=== PATIENT | female | born 1930 | race African-American/Black ===

== ENCOUNTER 2016-10-14 12:35 | Emergency (ER) | payer MEDICARE ==
[~2016-10-14] VITALS: Ht 160 cm; Wt 62.0 kg
[~2016-10-14 12:35] MED LIST: ASPI81TA21 PO; CALTTAB PO; MOTR200T PO; ROSU20 PO; VITA400C28 PO
[2016-10-14] MEDS ORDERED: SODIUM CHLORIDE 0.9% FLUSH 10 ML FLUSH IVF PRN (12:45)
[2016-10-14] MEDS ORDERED: SODIUM CHLORID 0.9% 500 ML INJ 500 ML IV ONE (12:45)
[2016-10-14 12:58] VITALS: BP 183/83; PULSE 69; RESP 18; TEMP 98.1
[2016-10-14 13:02] VITALS: BP 183/83; PULSE 66; RESP 18
[2016-10-14 13:05] VITALS: O2SAT 99
[2016-10-14 13:06] VITALS: BP_SYST 164; BP_SYST 166; BP_SYST 178; BP_SYST 183; BP_DIAS 75; BP_DIAS 77; BP_DIAS 81; BP_DIAS 83; PULSE 66
--- NOTE | 2016-10-14 13:15 | RADRPT ---
EXAM DATE/TIME: 10/14/2016 12:43 [facility] COMPARISON: CHEST SINGLE AP, April 22, 2016, 13:36. INDICATIONS : Syncopal episode today MEDICAL HISTORY : None. SURGICAL HISTORY : None. ENCOUNTER: Initial ACUITY: 1 day PAIN SCORE: 0/10 LOCATION: Bilateral chest FINDINGS: A single view of the chest demonstrates the lungs to be symmetrically aerated without evidence of mas s, infiltrate or effusion. The cardiomediastinal contours are unremarkable. Osseous structures are intact. CONCLUSION: No acute disease. Devan Irwin MD FACR on October 14, 2016 at 13:13 Board Certified Radiologist. This report was verified electronically.
[2016-10-14 13:45] LABS: AUTOMATED NEUTROPHIL # 2.4 TH/MM3 (1.8-7.7); EOSINOPHIL % 0.8 % (0.0-4.0); HEMATOCRIT 38.7 % (35.0-46.0); LYMPH % 31.2 % (9.0-44.0); LYMPHOCYTE # 1.3 TH/MM3 (1.0-4.8); MEAN CELL VOLUME 70.7 FL (80.0-100.0); MEAN CORPUSCULAR HEMOGLOBIN 21.4 PG (27.0-34.0); MEAN CORPUSCULAR HGB CONC 30.2 % (32.0-36.0); PLATELET COUNT 142 TH/MM3 (150-450); RED BLOOD COUNT 5.48 MIL/MM3 (4.00-5.30); RED CELL DISTRIBUTION WIDTH 15.5 % (11.6-17.2); WHITE BLOOD COUNT 4.1 TH/MM3 (4.0-11.0)
[2016-10-14 13:46] LABS: HEMO FLAGS AUTO DIFF
[2016-10-14 13:54] LABS: APTT (PATIENT) 25.7 SEC (24.3-30.1); PROTHROMBIN TIME - PATIENT 11.5 SEC (9.8-11.6)
[2016-10-14 14:01] LABS: ANION GAP 5 MEQ/L (5-15); BICARBONATE 28.7 MEQ/L (21.0-32.0); BLOOD UREA NITROGEN 28 MG/DL (7-18); CHLORIDE 110 MEQ/L (98-107); GLOMERULAR FILTRATION RATE 55 ML/MIN (>89); MAGNESIUM 2.1 MG/DL (1.5-2.5); POTASSIUM 4.1 MEQ/L (3.5-5.1); SODIUM (NA) 144 MEQ/L (136-145)
[2016-10-14 14:05] LABS: CREATINE KINASE 121 U/L (26-192)
[2016-10-14 14:15] VITALS: BP 164/75; PULSE 65
[2016-10-14 14:17] LABS: CKMB 1.9 NG/ML (0.5-3.6)
[2016-10-14 14:30] LABS: SCAN/DIFF AUTO DIFF CONFIRMED
--- NOTE | 2016-10-14 14:42 | PD ---
HPI Chief Complaint: Syncope/Near-Syncope Time Seen by Provider: 12:42 Travel History International Travel<30 days: No Contact w/Intl Traveler<30days: No Traveled to known affect area: No History of Present Illness HPI 86-year-old female came to the emergency room with history of syncopal episode while she was waiting for her food at [employer]. Patient says that she had not eaten for over 16 hours and was very hungry. She had ordered her food and waiting for it to arrive. She was standing when she suddenly felt that she was going to pass out. Bystanders told the EMS that she never really passed out. They gently laid her down on the floor. When EMS arrived she was awake and complaining of some generalized weakness. Her blood sugar was 121. She arrived with stable vital sign and GCS of 15. She was awake and answering questions appropriately. Told me that she has low back pain but patient has history of low back pain. She said her low back pain was no different than her usual. No history of nausea vomiting. Patient said she had a similar episode in April of last year. He was in the emergency room at that time and was worked up and discharged home. She followed up with her primary care after that. [facility] Past Medical History Narrative Medical List of her past medical, surgical, social and family history was reviewed from the nursing note. Arthritis: Yes Blood Disorders: No Anxiety: No Depression: Yes (IN 1940s) Cancer: No Cardiovascular Problems: Yes High Cholesterol: Yes Chemotherapy: No Endocrine: No Gastrointestinal Disorders: Yes Genitourinary: Yes (INCONTINENT A TIMES/ URGENCY) Hiatal Hernia: Yes Immune Disorder: No Implanted Vascular Access Dvce: No Musculoskeletal: Yes (VERSITIS RIGHT KNEE) Neurologic: Yes Psychiatric: Yes Reproductive: No Respiratory: No Radiation Therapy: No Past Surgical History Abdominal Surgery: Yes (CHOLECYSTECTOMY 2000) AICD: No Cholecystectomy: Yes Gynecologic Surgery: Yes Joint Replacement: No Pacemaker: No Other Surgery: Yes Social History Alcohol Use: Yes (TWICE A MONTH WINE) Tobacco Use: No Substance Use: No Allergies-Medications (Allergen,Severity, Reaction): Coded Allergies: Hydrocodone (Verified Allergy, Severe, HEADACHE, 04/22/16) Phenergan (Verified Allergy, Severe, SYNCOPE AND EMESIS, 04/22/16) Symmetrel (Verified Allergy, Severe, DIZZINESS AND HALLUCINATIONS, 04/22/16 ) Codeine (Verified Adverse Reaction, Severe, NAUSEA, 04/22/16) Tetracyclines (Verified Adverse Reaction, Severe, NAUSEA, 04/22/16) Comments List of her allergies reviewed from the nursing note. Reported Meds & Prescriptions Reported Meds & Active Scripts Active Reported Ibuprofen Ib (Ibuprofen) 200 Mg Tab 200 Mg PO DIRECTED PRN Caltrate 600+D (Calcium Carbonate/Cholecalciferol) + Tab 1 Tab PO DAILY Aspir-Low (Aspirin) 81 Mg Tab 81 Mg PO HS Vitamin D 400 Unit Tab 400 Units PO BID Crestor (Rosuvastatin Calcium) 20 Mg Tab 20 Mg PO HS Narrative Medication List of her home medications reviewed from the nursing note. Review of Systems Except as stated in HPI: all other systems reviewed are Neg Physical Exam Narrative GENERAL: Awake, alert, no obvious distress SKIN: Focused skin assessment warm/dry. HEAD: Atraumatic. Normocephalic. EYES: Pupils equal and round. No scleral icterus. No injection or drainage. ENT: No nasal bleeding or discharge. Dry mucous membrane NECK: Trachea midline. No JVD. CARDIOVASCULAR: Regular rate and rhythm. No murmur appreciated. RESPIRATORY: No accessory muscle use. Clear to auscultation. Breath sounds equal bilaterally. GASTROINTESTINAL: Abdomen soft, non-tender, nondistended. Hepatic and splenic margins not palpable. MUSCULOSKELETAL: No obvious deformities. No clubbing. No cyanosis. No edema. NEUROLOGICAL: Awake and alert. No obvious cranial nerve deficits. Motor grossly within normal limits. Normal speech. PSYCHIATRIC: Appropriate mood and affect; insight and judgment normal. Data Data Last Documented VS Vital Signs Date Time Temp Pulse Resp B/P Pulse Ox O2 Delivery O2 Flow Rate FiO2 10/14/16 15:37 100 10/14/16 14:15 65 164/75 10/14/16 13:05 Room Air 10/14/16 13:02 18 10/14/16 12:58 98.1 Orders Electrocardiogram (10/14/16 12:42) Basic Metabolic Panel (Bmp) (10/14/16 12:42) Ckmb (Isoenzyme) Profile (10/14/16 12:42) Complete Blood Count With Diff (10/14/16 12:42) Magnesium (Mg) (10/14/16 12:42) Prothrombin Time / Inr (Pt) (10/14/16 12:42) Act Partial Throm Time (Ptt) (10/14/16 12:42) Troponin I (10/14/16 12:42) Chest, Single Ap (10/14/16 12:42) Ecg Monitoring (10/14/16 12:42) Bilateral Bp Monitoring (10/14/16 12:42) Iv Access Insert/Monitor (10/14/16 12:42) Oximetry (10/14/16 12:42) Oxygen Administration (10/14/16 12:42) Sodium Chloride 0.9% Flush (Ns Flush) (10/14/16 12:45) Sodium Chlorid 0.9% 500 Ml Inj (Ns 500 M (10/14/16 12:45) Diet Heart Healthy (10/14/16 Lunch) Orthostatic Vital Signs (10/14/16 12:43) CKMB (10/14/16 13:20) CKMB% (10/14/16 13:20) Labs Laboratory Tests Test 10/14/16 13:20 White Blood Count 4.1 TH/MM3 Red Blood Count 5.48 MIL/MM3 Hemoglobin 11.7 GM/DL Hematocrit 38.7 % Mean Corpuscular Volume 70.7 FL Mean Corpuscular Hemoglobin 21.4 PG Mean Corpuscular Hemoglobin 30.2 % Concent Red Cell Distribution Width 15.5 % Platelet Count 142 TH/MM3 Mean Platelet Volume 9.9 FL Neutrophils (%) (Auto) 58.0 % Lymphocytes (%) (Auto) 31.2 % Monocytes (%) (Auto) 9.0 % Eosinophils (%) (Auto) 0.8 % Basophils (%) (Auto) 1.0 % Neutrophils # (Auto) 2.4 TH/MM3 Lymphocytes # (Auto) 1.3 TH/MM3 Monocytes # (Auto) 0.4 TH/MM3 Eosinophils # (Auto) 0.0 TH/MM3 Basophils # (Auto) 0.0 TH/MM3 CBC Comment AUTO DIFF Differential Comment AUTO DIFF CONFIRMED Prothrombin Time 11.5 SEC Prothromb Time International 1.0 RATIO Ratio Activated Partial 25.7 SEC Thromboplast Time Sodium Level 144 MEQ/L Potassium Level 4.1 MEQ/L Chloride Level 110 MEQ/L Carbon Dioxide Level 28.7 MEQ/L Anion Gap 5 MEQ/L Blood Urea Nitrogen 28 MG/DL Creatinine 1.13 MG/DL Estimat Glomerular Filtration 55 ML/MIN Rate Random Glucose 101 MG/DL Calcium Level 8.9 MG/DL Magnesium Level 2.1 MG/DL Total Creatine Kinase 121 U/L Creatine Kinase MB 1.9 NG/ML Troponin I LESS THAN 0.02 NG/ML MDM Medical Decision Making Medical Screen Exam Complete: Yes Emergency Medical Condition: Yes Medical Record Reviewed: Yes Interpretation(s) Twelve-lead EKG was reviewed by me. Normal sinus rhythm, left axis deviation, nonspecific ST-T wave changes. Heart rate of 66 bpm. Differential Diagnosis Dehydration, orthostatic hypotension, electrolyte abnormality, arrhythmia Narrative Course 2:42 PM blood test results of back and within normal limit. CT scan of her head is within normal limit. Procedures EKG Prior to Arrival: No Diagnosis Primary Impression: Pre-syncope Referrals: Primary Care Physician 3 days Additional Instructions: Please return to the ER if the condition worsens or any other concerns. Otherwise follow-up with your primary care. Drink lots of fluid. Med/Other Pt SpecificInfo: No Change to Meds Disposition: 01 DISCHARGE HOME Condition: Stable Celina Lee MD Oct 14, 2016 14:42
--- NOTE | 2016-10-15 00:01 | EKG ---
Date Performed: 10/14/2016 Time Performed: 13:40:29 PTAGE: 86 years EKG: Sinus rhythm NONSPECIFIC T-WAVE ABNORMALITY BORDERLINE ECG PREVIOUS TRACING : 04/22/2016 14.03 DOCTOR: Melinda Butler Interpretating Date/Time 10/15/2016 00:00:41
== END 2016-10-14 16:27 | disposition home or self-care (01) ==
LOC: NEPA 12:35
DX: R55 Syncope and collapse (principal); R53.1 Weakness; R94.31 Abnormal electrocardiogram [ECG] [EKG]; E78.00 Pure hypercholesterolemia, unspecified; Z87.39 Personal history of other diseases of the musculoskeletal system and connective tissue; Z86.79 Personal history of other diseases of the circulatory system; Z87.19 Personal history of other diseases of the digestive system; Z87.448 Personal history of other diseases of urinary system; Z86.69 Personal history of other diseases of the nervous system and sense organs; Z86.59 Personal history of other mental and behavioral disorders
CPT/HCPCS: 71010; 80048; 82550; 82552; 83735; 84484; 85025; 85610; 85730; 93005; 96360; 99284; J7040

== ENCOUNTER 2016-10-24 22:15 | Emergency (ER) | payer MEDICARE ==
[~2016-10-24] VITALS: Ht 160 cm; Wt 60.0 kg
[2016-10-24 23:14] VITALS: BP 137/74; PULSE 68; RESP 20; TEMP 98.1; O2SAT 99
[2016-10-24 23:21] VITALS: O2SAT 98
[2016-10-24] MEDS ORDERED: SODIUM CHLORIDE 0.9% FLUSH 10 ML FLUSH IVF PRN (23:30)
--- NOTE | 2016-10-24 23:50 | RADRPT ---
EXAM DATE/TIME: 10/24/2016 23:16 [facility] COMPARISON: No previous studies available for comparison. INDICATIONS : Syncope. MEDICAL HISTORY : Cardiovascular disease. Arthritis. Hernia, hiatal. SURGICAL HISTORY : Hysterectomy. Cholecystectomy. ENCOUNTER: Initial ACUITY: 1 day PAIN SCORE: 0/10 LOCATION: Bilateral chest FINDINGS: A single view of the chest demonstrates the lungs to be symmetrically aerated without evidence of mas s, infiltrate or effusion. The cardiomediastinal contours are unremarkable. Osseous structures are intact. CONCLUSION: No acute disease. Felix Slaughter MD on October 24, 2016 at 23:48 Board Certified Radiologist. This report was verified electronically.
--- NOTE | 2016-10-25 00:01 | RADRPT ---
EXAM DATE/TIME: 10/24/2016 23:54 [facility] COMPARISON: CT BRAIN W/O CONTRAST, April 22, 2016, 13:43. INDICATIONS : Syncopal episode. RADIATION DOSE: 31.34 CTDIvol (mGy) MEDICAL HISTORY : None SURGICAL HISTORY : None. ENCOUNTER: Initial ACUITY: 1 day PAIN SCALE: 4/10 LOCATION: cranial TECHNIQUE: Multiple contiguous axial images were obtained of the head. Using automated exposure control and adj ustment of the mA and/or kV according to patient size, radiation dose was kept as low as reasonably a chievable to obtain optimal diagnostic quality images. FINDINGS: CEREBRUM: Area of low attenuation throughout the white matter. The ventricles are normal for age. No evidence of midline shift, mass lesion, hemorrhage or acute infarction. No extra-axial fluid collections are seen. POSTERIOR FOSSA: The cerebellum and brainstem are intact. The 4th ventricle is midline. The cerebellopontine angle i s unremarkable. EXTRACRANIAL: The visualized portion of the orbits is intact. SKULL: The calvaria is intact. No evidence of skull fracture. CONCLUSION: Nonspecific white matter changes. No change from previous study. Felix Slaughter MD on October 25, 2016 at 0:00 Board Certified Radiologist. This report was verified electronically.
[2016-10-25 00:02] LABS: BLOOD, URINE NEG (NEG); COMMENT (UR) CULT NOT INDICATED; CULTURE IF INDICATED CULT NOT INDICATED; GLUCOSE,URINE NEG (NEG); KETONE, URINE NEG (NEG); MUCUS URINE FEW /lpf (OCC); NITRITE,URINE NEG (NEG); SQUAMOUS EPITHELIAL CELL URINE 1 /hpf (0-5); URINE COLOR LIGHT-YELLOW (YELLW/STRAW)
[2016-10-25 01:09] LABS: ALT (GPT) 20 U/L (10-53); ANION GAP 9 MEQ/L (5-15); AST (GOT) 17 U/L (15-37); BICARBONATE 26.2 MEQ/L (21.0-32.0); BLOOD UREA NITROGEN 21 MG/DL (7-18); CHLORIDE 104 MEQ/L (98-107); GLOMERULAR FILTRATION RATE 59 ML/MIN (>89); MAGNESIUM 2.1 MG/DL (1.5-2.5); POTASSIUM 4.2 MEQ/L (3.5-5.1); SODIUM (NA) 139 MEQ/L (136-145)
[2016-10-25 01:12] LABS: ALKALINE PHOSPHATASE 68 U/L (45-117); CREATINE KINASE 104 U/L (26-192); TOTAL BILIRUBIN ADULT 0.3 MG/DL (0.2-1.0)
--- NOTE | 2016-10-25 01:17 | PD ---
HPI Chief Complaint: Syncope/Near-Syncope Time Seen by Provider: 23:54 Travel History International Travel<30 days: No Contact w/Intl Traveler<30days: No Traveled to known affect area: No History of Present Illness HPI Patient is an 86-year-old female who presents to emergency room with her daughter for evaluation of near syncopal episode. She reports that she was at [employer] today, reports that she was waiting for her friends and started having a heavy sensation. Patient reports that she told this to one of the [employer] members and she was brought to the bench chair, reports that she felt as if she was going to "pass out." Patient reports that she had a syncopal episode 2 weeks ago and was admitted to the hospital, patient unsure why she keeps having these syncopal episodes. Patient reports that if her friends can help her to the bench, she would've passed out. Patient reports that she has no headache or dizziness at this time. Patient with no chest pain or shortness of breath. PFSH Past Medical History Arthritis: Yes Blood Disorders: No Anxiety: No Depression: Yes (IN 1940s) Cancer: No Cardiovascular Problems: Yes High Cholesterol: Yes Chemotherapy: No Diminished Hearing: Yes Endocrine: No Gastrointestinal Disorders: Yes Genitourinary: Yes (INCONTINENT A TIMES/ URGENCY) Hiatal Hernia: Yes Immune Disorder: No Implanted Vascular Access Dvce: No Musculoskeletal: Yes (VERSITIS RIGHT KNEE) Neurologic: Yes Psychiatric: Yes Reproductive: No Respiratory: No Radiation Therapy: No Tetanus Vaccination: > 5 Years Influenza Vaccination: No Past Surgical History Abdominal Surgery: Yes (CHOLECYSTECTOMY 2000) AICD: No Cholecystectomy: Yes Gynecologic Surgery: Yes Joint Replacement: No Pacemaker: No Other Surgery: Yes Social History Alcohol Use: No Tobacco Use: No Substance Use: No Allergies-Medications (Allergen,Severity, Reaction): Coded Allergies: Hydrocodone (Verified Allergy, Severe, HEADACHE, 10/24/16) Phenergan (Verified Allergy, Severe, SYNCOPE AND EMESIS, 10/24/16) Symmetrel (Verified Allergy, Severe, DIZZINESS AND HALLUCINATIONS, 10/24/16 ) Codeine (Verified Adverse Reaction, Severe, NAUSEA, 10/24/16) Tetracyclines (Verified Adverse Reaction, Severe, NAUSEA, 10/24/16) Reported Meds & Prescriptions Reported Meds & Active Scripts Active Reported Ibuprofen Ib (Ibuprofen) 200 Mg Tab 200 Mg PO DIRECTED PRN Caltrate 600+D (Calcium Carbonate/Cholecalciferol) + Tab 1 Tab PO DAILY Aspir-Low (Aspirin) 81 Mg Tab 81 Mg PO HS Vitamin D (Cholecalciferol) 400 Unit Tab 400 Units PO BID Crestor (Rosuvastatin Calcium) 20 Mg Tab 20 Mg PO HS Review of Systems General / Constitutional: No: Fever Eyes: No: Visual changes HENT: No: Headaches Cardiovascular: No: Chest Pain or Discomfort Respiratory: No: Shortness of Breath Gastrointestinal: No: Abdominal Pain Genitourinary: No: Dysuria Musculoskeletal: No: Pain Skin: No Rash Neurologic: Positive: Weakness, Syncope Psychiatric: No: Depression Endocrine: No: Polydipsia Hematologic/Lymphatic: No: Easy Bruising Physical Exam Narrative GENERAL: No acute distress, nontoxic SKIN: Focused skin assessment warm/dry. HEAD: Atraumatic. Normocephalic. EYES: Pupils equal and round. No scleral icterus. No injection or drainage. ENT: No nasal bleeding or discharge. Mucous membranes pink and moist. NECK: Trachea midline. No JVD. CARDIOVASCULAR: Regular rate and rhythm. No murmur appreciated. RESPIRATORY: No accessory muscle use. Clear to auscultation. Breath sounds equal bilaterally. GASTROINTESTINAL: Abdomen soft, non-tender, nondistended. Hepatic and splenic margins not palpable. MUSCULOSKELETAL: No obvious deformities. No clubbing. No cyanosis. No edema. NEUROLOGICAL: Awake and alert. No obvious cranial nerve deficits. Motor grossly within normal limits. Normal speech. CN2- 12 grossly intact with no obvious neuro deficits PSYCHIATRIC: Appropriate mood and affect; insight and judgment normal. Data Data Last Documented VS Vital Signs Date Time Temp Pulse Resp B/P Pulse Ox O2 Delivery O2 Flow Rate FiO2 10/24/16 23:21 98 10/24/16 23:14 98.1 68 20 137/74 Orders Complete Blood Count With Diff (10/24/16 23:17) Comprehensive Metabolic Panel (10/24/16 23:17) Magnesium (Mg) (10/24/16 23:17) B-Type Natriuretic Peptide (10/24/16 23:17) Ckmb (Isoenzyme) Profile (10/24/16 23:17) Troponin I (10/24/16 23:17) Act Partial Throm Time (Ptt) (10/24/16 23:17) Prothrombin Time / Inr (Pt) (10/24/16 23:17) Urinalysis - C+S If Indicated (10/24/16 23:17) Chest, Single Ap (10/24/16 23:17) Ct Brain W/O Iv Contrast(Rout) (10/24/16 23:17) Blood Glucose (10/24/16 23:17) Ecg Monitoring (10/24/16 23:17) Iv Access Insert/Monitor (10/24/16 23:17) Oximetry (10/24/16 23:17) Sodium Chloride 0.9% Flush (Ns Flush) (10/24/16 23:30) CKMB (10/25/16 00:10) CKMB% (10/25/16 00:10) Sodium Chlorid 0.9% 500 Ml Inj (Ns 500 M (10/25/16 02:00) Labs Laboratory Tests Test 10/24/16 10/25/16 10/25/16 23:45 00:10 02:00 Urine Color LIGHT-YELLOW Urine Turbidity CLEAR Urine pH 7.0 Urine Specific [place] 1.010 Urine Protein NEG mg/dL Urine Glucose (UA) NEG mg/dL Urine Ketones NEG mg/dL Urine Occult Blood NEG Urine Nitrite NEG Urine Bilirubin NEG Urine Urobilinogen LESS THAN 2.0 MG/DL Urine Leukocyte Esterase NEG Urine RBC 1 /hpf Urine WBC 2 /hpf Urine Squamous Epithelial 1 /hpf Cells Urine Mucus FEW /lpf Microscopic Urinalysis Comment CULT NOT INDICATED Sodium Level 139 MEQ/L Potassium Level 4.2 MEQ/L Chloride Level 104 MEQ/L Carbon Dioxide Level 26.2 MEQ/L Anion Gap 9 MEQ/L Blood Urea Nitrogen 21 MG/DL Creatinine 1.06 MG/DL Estimat Glomerular Filtration 59 ML/MIN Rate Random Glucose 114 MG/DL Calcium Level 9.5 MG/DL Magnesium Level 2.1 MG/DL Total Bilirubin 0.3 MG/DL Aspartate Amino Transf 17 U/L (AST/SGOT) Alanine Aminotransferase 20 U/L (ALT/SGPT) Alkaline Phosphatase 68 U/L Total Creatine Kinase 104 U/L Creatine Kinase MB 1.4 NG/ML Troponin I LESS THAN 0.02 NG/ML B-Type Natriuretic Peptide 32 PG/ML Total Protein 7.4 GM/DL Albumin 3.7 GM/DL White Blood Count 7.6 TH/MM3 Red Blood Count 5.51 MIL/MM3 Hemoglobin 12.2 GM/DL Hematocrit 38.5 % Mean Corpuscular Volume 69.8 FL Mean Corpuscular Hemoglobin 22.2 PG Mean Corpuscular Hemoglobin 31.8 % Concent Red Cell Distribution Width 15.3 % Platelet Count 149 TH/MM3 Mean Platelet Volume 9.9 FL Neutrophils (%) (Auto) 80.3 % Lymphocytes (%) (Auto) 13.7 % Monocytes (%) (Auto) 5.7 % Eosinophils (%) (Auto) 0.1 % Basophils (%) (Auto) 0.2 % Neutrophils # (Auto) 6.1 TH/MM3 Lymphocytes # (Auto) 1.0 TH/MM3 Monocytes # (Auto) 0.4 TH/MM3 Eosinophils # (Auto) 0.0 TH/MM3 Basophils # (Auto) 0.0 TH/MM3 CBC Comment AUTO DIFF Differential Comment AUTO DIFF CONFIRMED Platelet Estimate NORMAL Platelet Morphology Comment ENLARGED Ovalocytes 1+ Prothrombin Time 11.2 SEC Prothromb Time International 1.0 RATIO Ratio Activated Partial 24.8 SEC Thromboplast Time MDM Medical Decision Making Medical Screen Exam Complete: Yes Emergency Medical Condition: Yes Interpretation(s) EKG at 2237: NSR at 66bpm, qt/qtc: 331/345, nonspecific t wave changes Vital Signs Date Time Temp Pulse Resp B/P Pulse Ox O2 Delivery O2 Flow Rate FiO2 10/24/16 23:21 98 10/24/16 23:14 98.1 68 20 137/74 99 10/24/16 23:14 68 20 98 Laboratory Tests Test 10/24/16 10/25/16 23:45 00:10 Urine Color LIGHT-YELLOW (YELLW/STRAW) Urine Turbidity CLEAR (CLEAR) Urine pH 7.0 (5.0-8.5) Urine Specific [place] 1.010 (1.002-1.035) Urine Protein NEG mg/dL (NEG-TRACE) Urine Glucose (UA) NEG mg/dL (NEG) Urine Ketones NEG mg/dL (NEG) Urine Occult Blood NEG (NEG) Urine Nitrite NEG (NEG) Urine Bilirubin NEG (NEG) Urine Urobilinogen LESS THAN 2.0 MG/DL (LESS THAN 2.0) Urine Leukocyte Esterase NEG (NEG) Urine RBC 1 /hpf (0-3) Urine WBC 2 /hpf (0-5) Urine Squamous Epithelial 1 /hpf (0-5) Cells Urine Mucus FEW /lpf (OCC) Microscopic Urinalysis Comment CULT NOT INDICATED Sodium Level 139 MEQ/L (136-145) Potassium Level 4.2 MEQ/L (3.5-5.1) Chloride Level 104 MEQ/L (98-107) Carbon Dioxide Level 26.2 MEQ/L (21.0-32.0) Anion Gap 9 MEQ/L (5-15) Blood Urea Nitrogen 21 MG/DL (7-18) Creatinine 1.06 MG/DL (0.50-1.00) Estimat Glomerular Filtration 59 ML/MIN (>89) Rate Random Glucose 114 MG/DL (74-106) Calcium Level 9.5 MG/DL (8.5-10.1) Magnesium Level 2.1 MG/DL (1.5-2.5) Total Bilirubin 0.3 MG/DL (0.2-1.0) Aspartate Amino Transf 17 U/L (15-37) (AST/SGOT) Alanine Aminotransferase 20 U/L (10-53) (ALT/SGPT) Alkaline Phosphatase 68 U/L (45-117) Total Creatine Kinase 104 U/L (26-192) Troponin I LESS THAN 0.02 NG/ML (0.02-0.05) Total Protein 7.4 GM/DL (6.4-8.2) Albumin 3.7 GM/DL (3.4-5.0) Last Impressions Head CT 10/24/162316 Signed Impressions: Service Date/Time: Monday, October 24, 2016 23:54 - CONCLUSION: Nonspecific white matter changes. No change from previous study. Felix Slaughter MD Chest X-Ray 10/24/162316 Signed Impressions: Service Date/Time: Monday, October 24, 2016 23:16 - CONCLUSION: No acute disease. Felix Slaughter MD Differential Diagnosis Arrhythmia, intracranial hemorrhage, electrolyte, ACS, UTI Narrative Course Patient is an 78-year-old female who presents emergency room with her family members after near syncopal episode. Patient reports that she was at [employer] and felt as if she was going to "pass out." Patient was placed on a aesthetics instructor upon arrival to the emergency room. NIH scale 0 CT of her head as well as lab work ordered. Vital Signs Date Time Temp Pulse Resp B/P Pulse Ox O2 Delivery O2 Flow Rate FiO2 10/24/16 23:21 98 10/24/16 23:14 98.1 68 20 137/74 99 10/24/16 23:14 68 20 98 Laboratory Tests Test 10/24/16 10/25/16 10/25/16 23:45 00:10 02:00 Urine Color LIGHT-YELLOW (YELLW/STRAW) Urine Turbidity CLEAR (CLEAR) Urine pH 7.0 (5.0-8.5) Urine Specific [place] 1.010 (1.002-1.035) Urine Protein NEG mg/dL (NEG-TRACE) Urine Glucose (UA) NEG mg/dL (NEG) Urine Ketones NEG mg/dL (NEG) Urine Occult Blood NEG (NEG) Urine Nitrite NEG (NEG) Urine Bilirubin NEG (NEG) Urine Urobilinogen LESS THAN 2.0 MG/DL (LESS THAN 2.0) Urine Leukocyte Esterase NEG (NEG) Urine RBC 1 /hpf (0-3) Urine WBC 2 /hpf (0-5) Urine Squamous Epithelial 1 /hpf (0-5) Cells Urine Mucus FEW /lpf (OCC) Microscopic Urinalysis Comment CULT NOT INDICATED Sodium Level 139 MEQ/L (136-145) Potassium Level 4.2 MEQ/L (3.5-5.1) Chloride Level 104 MEQ/L (98-107) Carbon Dioxide Level 26.2 MEQ/L (21.0-32.0) Anion Gap 9 MEQ/L (5-15) Blood Urea Nitrogen 21 MG/DL (7-18) Creatinine 1.06 MG/DL (0.50-1.00) Estimat Glomerular Filtration 59 ML/MIN (>89) Rate Random Glucose 114 MG/DL (74-106) Calcium Level 9.5 MG/DL (8.5-10.1) Magnesium Level 2.1 MG/DL (1.5-2.5) Total Bilirubin 0.3 MG/DL (0.2-1.0) Aspartate Amino Transf 17 U/L (15-37) (AST/SGOT) Alanine Aminotransferase 20 U/L (10-53) (ALT/SGPT) Alkaline Phosphatase 68 U/L (45-117) Total Creatine Kinase 104 U/L (26-192) Creatine Kinase MB 1.4 NG/ML (0.5-3.6) Troponin I LESS THAN 0.02 NG/ML (0.02-0.05) B-Type Natriuretic Peptide 32 PG/ML (0-100) Total Protein 7.4 GM/DL (6.4-8.2) Albumin 3.7 GM/DL (3.4-5.0) White Blood Count 7.6 TH/MM3 (4.0-11.0) Red Blood Count 5.51 MIL/MM3 (4.00-5.30) Hemoglobin 12.2 GM/DL (11.6-15.3) Hematocrit 38.5 % (35.0-46.0) Mean Corpuscular Volume 69.8 FL (80.0-100.0) Mean Corpuscular Hemoglobin 22.2 PG (27.0-34.0) Mean Corpuscular Hemoglobin 31.8 % Concent (32.0-36.0) Red Cell Distribution Width 15.3 % (11.6-17.2) Platelet Count 149 TH/MM3 (150-450) Mean Platelet Volume 9.9 FL (7.0-11.0) Neutrophils (%) (Auto) 80.3 % (16.0-70.0) Lymphocytes (%) (Auto) 13.7 % (9.0-44.0) Monocytes (%) (Auto) 5.7 % (0.0-8.0) Eosinophils (%) (Auto) 0.1 % (0.0-4.0) Basophils (%) (Auto) 0.2 % (0.0-2.0) Neutrophils # (Auto) 6.1 TH/MM3 (1.8-7.7) Lymphocytes # (Auto) 1.0 TH/MM3 (1.0-4.8) Monocytes # (Auto) 0.4 TH/MM3 (0-0.9) Eosinophils # (Auto) 0.0 TH/MM3 (0-0.4) Basophils # (Auto) 0.0 TH/MM3 (0-0.2) CBC Comment AUTO DIFF Differential Comment AUTO DIFF CONFIRMED Platelet Estimate NORMAL (NORMAL) Platelet Morphology Comment ENLARGED (NORMAL) Ovalocytes 1+ (NORMAL) Prothrombin Time 11.2 SEC (9.8-11.6) Prothromb Time International 1.0 RATIO Ratio Activated Partial 24.8 SEC Thromboplast Time (24.3-30.1) [place] [address] Signed Impressions: Service Date/Time: Monday, October 24, 2016 23:54 - CONCLUSION: Nonspecific white matter changes. No change from previous study. Felix Slaughter MD Chest X-Ray 10/24/162316 Signed Impressions: Service Date/Time: Monday, October 24, 2016 23:16 - CONCLUSION: No acute disease. Felix Slaughter MD All labs and all studies reviewed patient in detail. Patient reports that she is feeling much better after the IV fluids. Discussed signs and symptoms of when to return to the emergency room. Patient will return to emergency room as needed. Patient will follow-up with a primary care doctor. Diagnosis Primary Impression: Pre-syncope Additional Impression: Dehydration Patient Instructions: General Instructions Additional Instructions: Please follow up with your primary care doctor Return to the emergency room if symptoms return Return to the emergency room as needed Please drink plenty of fluids Return to the ER immediately if you develop severe chest pain, shortness of breath, sweating, lightheadedness, dizziness or difficulty breathing Disposition: 01 DISCHARGE HOME Condition: Stable Farida Ritter DO Oct 25, 2016 01:17
[2016-10-25 01:25] LABS: CKMB 1.4 NG/ML (0.5-3.6)
[2016-10-25] MEDS ORDERED: SODIUM CHLORID 0.9% 500 ML INJ 500 ML IV ONE (02:00)
[2016-10-25 02:34] LABS: AUTOMATED NEUTROPHIL # 6.1 TH/MM3 (1.8-7.7); BASOPHIL % 0.2 % (0.0-2.0); EOSINOPHIL % 0.1 % (0.0-4.0); HEMATOCRIT 38.5 % (35.0-46.0); LYMPH % 13.7 % (9.0-44.0); MEAN CELL VOLUME 69.8 FL (80.0-100.0); MEAN CORPUSCULAR HEMOGLOBIN 22.2 PG (27.0-34.0); MEAN CORPUSCULAR HGB CONC 31.8 % (32.0-36.0); MONO % 5.7 % (0.0-8.0); NEUT % 80.3 % (16.0-70.0); PLATELET COUNT 149 TH/MM3 (150-450); RED BLOOD COUNT 5.51 MIL/MM3 (4.00-5.30); RED CELL DISTRIBUTION WIDTH 15.3 % (11.6-17.2); WHITE BLOOD COUNT 7.6 TH/MM3 (4.0-11.0)
[2016-10-25 02:36] LABS: APTT (PATIENT) 24.8 SEC (24.3-30.1); PROTHROMBIN TIME - PATIENT 11.2 SEC (9.8-11.6)
[2016-10-25 02:47] LABS: HEMO FLAGS AUTO DIFF
[2016-10-25 03:21] LABS: OVALOCYTES 1+ (NORMAL); PLATELET ESTIMATE SMEAR NORMAL (NORMAL); PLATELET MORPHOLOGY ENLARGED (NORMAL); SCAN/DIFF AUTO DIFF CONFIRMED
--- NOTE | 2016-10-25 11:55 | EKG ---
Date Performed: 10/24/2016 Time Performed: 22:37:50 PTAGE: 86 years EKG: Sinus rhythm NONSPECIFIC T-WAVE ABNORMALITY BORDERLINE ECG NO PREVIOUS TRACING DOCTOR: Dino Lozada Interpretating Date/Time 10/25/2016 11:51:11
== END 2016-10-25 04:21 | disposition home or self-care (01) ==
LOC: NEPC 22:15
DX: R55 Syncope and collapse (principal); E86.0 Dehydration; R94.31 Abnormal electrocardiogram [ECG] [EKG]
CPT/HCPCS: 70450; 71010; 80053; 81001; 82550; 82552; 83735; 83880; 84484; 85025; 85610; 85730; 93005; 96360; 96361; 99284; J7040

== ENCOUNTER 2017-07-01 08:12 | Emergency (ER) | payer MEDICARE ==
[~2017-07-01] VITALS: Ht 160 cm; Wt 56.5 kg
[2017-07-01 08:13] VITALS: BP 191/86; PULSE 71; RESP 16; TEMP 98; O2SAT 98
[2017-07-01] MEDS ORDERED: IBUPROFEN 400 MG TAB PO ONE (08:45)
--- NOTE | 2017-07-01 08:45 | PD ---
HPI Chief Complaint: Pain: Acute or Chronic Time Seen by Provider: 08:40 Travel History International Travel<30 days: No Contact w/Intl Traveler<30days: No Traveled to known affect area: No History of Present Illness HPI 86-year-old right-hand dominant female presents to the ED for evaluation of right hand and wrist pain. Onset last night. Rated 8/10, worsened by touch and certain motions. The patient states that she had blood drawn out of the right hand last week. He endorses weakness and limitations to range of motion secondary to pain. She states the pain radiates into the wrist and forearm. She denies numbness, tingling, known trauma. She treated at home by using a compressive wrap. PFSH Past Medical History Arthritis: Yes Blood Disorders: No Anxiety: No Depression: Yes (IN 1940s) Cancer: No Cardiovascular Problems: Yes High Cholesterol: Yes Chemotherapy: No Diminished Hearing: Yes Endocrine: No Gastrointestinal Disorders: Yes Genitourinary: Yes (INCONTINENT A TIMES/ URGENCY) Hiatal Hernia: Yes Immune Disorder: No Implanted Vascular Access Dvce: No Musculoskeletal: Yes (VERSITIS RIGHT KNEE) Neurologic: Yes Psychiatric: Yes Reproductive: No Respiratory: No Radiation Therapy: No Past Surgical History Abdominal Surgery: Yes (CHOLECYSTECTOMY 2000) AICD: No Cholecystectomy: Yes Gynecologic Surgery: Yes Hysterectomy: Yes Joint Replacement: No Pacemaker: No Other Surgery: Yes Social History Alcohol Use: No Tobacco Use: No Substance Use: No Allergies-Medications (Allergen,Severity, Reaction): Coded Allergies: amantadine (Unverified Allergy, Severe, DIZZINESS AND HALLUCINATIONS, 02/27) hydrocodone (Unverified Allergy, Severe, HEADACHE, 02/27/17) promethazine (Unverified Allergy, Severe, SYNCOPE AND EMESIS, 02/27/17) codeine (Unverified Adverse Reaction, Severe, NAUSEA, 02/27/17) doxycycline (Unverified Adverse Reaction, Severe, NAUSEA, 02/27/17) minocycline (Unverified Adverse Reaction, Severe, NAUSEA, 02/27/17) tigecycline (Unverified Adverse Reaction, Severe, NAUSEA, 02/27/17) Reported Meds & Prescriptions Reported Meds & Active Scripts Active Reported Ibuprofen Ib (Ibuprofen) 200 Mg Tab 200 Mg PO DIRECTED PRN Caltrate 600+D (Calcium Carbonate/Cholecalciferol) + Tab 1 Tab PO DAILY Aspir-Low (Aspirin) 81 Mg Tab 81 Mg PO HS Vitamin D (Cholecalciferol) 400 Unit Tab 400 Units PO BID Crestor (Rosuvastatin Calcium) 20 Mg Tab 20 Mg PO HS Review of Systems Except as stated in HPI: all other systems reviewed are Neg Physical Exam Narrative GENERAL: Well-nourished, well-developed petite black female in no acute distress. SKIN: Focused skin assessment warm/dry. HEAD: Normocephalic. EYES: No scleral icterus. No injection or drainage. NECK: Supple, trachea midline. No JVD or lymphadenopathy. CARDIOVASCULAR: Regular rate and rhythm without murmurs, gallops, or rubs. RESPIRATORY: Breath sounds equal bilaterally. No accessory muscle use. GASTROINTESTINAL: Abdomen soft, non-tender, nondistended. MUSCULOSKELETAL: No cyanosis, or edema. FOCUSED RIGHT UPPER EXTREMITY EXAM: 2+ radial pulse. No ecchymosis, edema, erythema or warmth. Tender to palpation of the wrist. Strong extension service specialist in charge strength. Patient retains full, active ROM although flexion and extension does elicit pain. Sensation intact to light touch distally. BACK: Nontender without obvious deformity. No CVA tenderness. Data Data Last Documented VS Vital Signs Date Time Temp Pulse Resp B/P (MAP) Pulse Ox O2 Delivery O2 Flow Rate FiO2 07/01/17 10:33 07/01/17 08:13 98.0 71 16 98 Orders Orders Us Arm Venous Doppler (07/01/17 08:40) Ibuprofen (Motrin) (07/01/17 08:45) Ed Discharge Order (07/01/17 10:25) [facility] Medical Decision Making Medical Screen Exam Complete: Yes Emergency Medical Condition: Yes Differential Diagnosis Thrombophlebitis versus DVT versus musculoskeletal pain versus Narrative Course 86-year-old right-hand dominant female presents to the ED for evaluation of right hand and wrist pain. Onset last night. Rated 8/10, worsened by touch and certain motions. The patient states that she had blood drawn out of the right hand last week. Vitals reviewed. On physical exam the patient has tenderness to the wrist but there is no erythema, edema, warmth. Palpable pulse. The patient was administered 400 mg ibuprofen. Ultrasound of the upper extremity reveals no evidence of DVT. This is superficial thrombophlebitis. Patient's instructed to continue with warm compresses, inflammatories until symptoms resolve, follow up with her primary care provider. She indicated understanding of instructions and is agreeable a care plan. She stable and discharged home. Diagnosis Primary Impression: Thrombophlebitis of arm, right Referrals: Primary Care Physician Patient Instructions: General Instructions, Superficial Thrombophlebitis (ED) Additional Instructions: Rest, hydrate. Warm compresses applied 3-4 times daily may help to reduce your symptoms. [id number] anti-inflammatory medication such as ibuprofen or Tylenol may also help to reduce your symptoms. Follow-up with your primary care provider. Return to the ED for any urgent or emergent medical condition. Disposition: 01 DISCHARGE HOME Condition: Stable Macarena Beck Jul 01, 2017 08:45
--- NOTE | 2017-07-01 10:09 | RADRPT ---
EXAM DATE/TIME: 07/01/2017 09:15 [facility] COMPARISON: No previous studies available for comparison. INDICATIONS : Right arm pain. MEDICAL HISTORY : Hypercholesterolemia. Arthritis. Osteoporosis. Syncope. Hiatal hernia. Versitis, right knee. Depressi on. MRSA. SURGICAL HISTORY : Cholecystectomy. Hysterectomy. ENCOUNTER: Initial ACUITY: 2 day PAIN SCORE: 7/10 LOCATION: Right arm. FINDINGS: There is spontaneous flow documented in the brachial, basilic, cephalic, axillary, and subclavian vei ns. The vessels are compressible and augmentation response is documented. No filling defects are se en. The flow is phasic with respiration. Direction of flow in the jugular vein is caudal. CONCLUSION: Negative exam. No sonographic or Doppler findings of deep venous thrombosis. Tyler Nicholas MD on July 01, 2017 at 10:06 Board Certified Radiologist. This report was verified electronically.
== END 2017-07-01 10:36 | disposition home or self-care (01) ==
LOC: NEPD 08:12
DX: I80.8 Phlebitis and thrombophlebitis of other sites (principal); M19.90 Unspecified osteoarthritis, unspecified site; E78.00 Pure hypercholesterolemia, unspecified; Z79.899 Other long term (current) drug therapy; Z79.82 Long term (current) use of aspirin; Z88.5 Allergy status to narcotic agent; Z88.8 Allergy status to other drugs, medicaments and biological substances
CPT/HCPCS: 93971; 99284